=== PATIENT | male | born 1930 | race Caucasian/White ===

== ENCOUNTER 2018-06-29 16:57 | Emergency (ER) | payer MEDICARE, BC ==
[2018-06-29] MEDS ORDERED: Bacitracin Oint 1 GM U/D Packet TOP ONE (18:26)
[2018-06-29] MEDS ORDERED: Lidocaine 1% with EPINEPHrine 1:100,000 50 ML MDV SUBCUT STA (18:26)
--- NOTE | 2018-06-29 19:34 | EDM.PDOC ---
ED HPI GENERAL MEDICAL PROBLEM - General Chief Complaint: Laceration Stated Complaint: LEFT HAND, FINGER, AND ARM INJURY Time Seen by Provider: 06/29/18 18:41 Source of Information: Reports: Patient, RN Notes Reviewed History Limitations: Reports: No Limitations - History of Present Illness INITIAL COMMENTS - FREE TEXT/NARRATIVE: 88-year-old gentleman presents emergency department today following a misstep on a ladder, he injured her injuring his left hand with a significant laceration of the forearm and a small laceration of digit #3 no functional complaints at the elbow or wrist tetanus was last 2016 denies any loss of consciousness Left Hand Pain Score (Numeric/FACES): 5 - Related Data Allergies Allergy/AdvReac Type Severity Reaction Status Date / Time No Known Allergies Allergy Verified 06/29/18 17:08 Home Meds: Home Meds Carvedilol 12.5 mg PO BID 09/25/14 [History] Cholecalciferol (Vitamin D3) [Vitamin D] 400 units PO DAILY 09/25/14 [History] Losartan [Cozaar] 50 mg PO DAILY 09/25/14 [History] Simvastatin 80 mg PO DAILY 09/25/14 [History] Warfarin Sliding Scale [Coumadin Sliding Scale] 2 mg PO ASDIRECTED 09/25/14 [ History] Acetaminophen [Tylenol Extra Strength] 1 tab PO ASDIRECTED 02/17/17 [History] Cyanocobalamin (Vitamin B-12) [Vitamin B-12] 100 mcg PO DAILY 02/17/17 [History] Gabapentin [Neurontin] 1 cap PO TID 02/17/17 [History] Warfarin [Coumadin] 1.5 tab PO ASDIRECTED 02/17/17 [History] Past Medical History HEENT History: Reports: Impaired Vision Cardiovascular History: Reports: Heart Murmur, Hypertension Musculoskeletal History: Reports: Other (See Below) Other Musculoskeletal History: finger amputation Neurological History: Reports: Neuropathy, Peripheral - Past Surgical History Cardiovascular Surgical History: Reports: Valve Replacement Social & Family History - Tobacco Use Smoking Status *Q: Never Smoker - Caffeine Use Caffeine Use: Reports: Soda - Recreational Drug Use Recreational Drug Use: No ED ROS GENERAL - Review of Systems Review Of Systems: See Below Musculoskeletal: Reports: No Symptoms Skin: Reports: Wound ED EXAM, SKIN/RASH Exam: See Below Text/Narrative:: examination of the left arm he is missing digits 12 and 3 from prior injuries there is a 1 cm laceration over the PIP joint superficial palmar aspect there is a 9 cm laceration in the forearm it is completely through the dermis with partial laceration of the muscle, just distal to that is a 3 cm laceration partially through the dermis Exam Limited By: No Limitations General Appearance: Alert, WD/WN, No Apparent Distress Respiratory/Chest: No Respiratory Distress ED SKIN PROCEDURES - Laceration/Wound Repair Left Digit - 4th (Ring) Lac/Wound length In cm: 1 Appearance: Subcutaneous Distal NVT: Neuro & Vascular Intact, No Tendon Injury Anesthetic Type: Digital Local Anesthesia - Lidocaine (Xylocaine): 1% Plain Local Anesthetic Volume: 2cc Skin Prep: Saline Saline Irrigation (cc's): 60 Exploration/Debridement/Repair: Wound Explored, In a Bloodless Field, Explored to Base Closed with: Sutures Suture Size: 4-0 # of Sutures: 2 Suture Type: Interrupted Sterile Dressing Applied: Nurse Tetanus Status Addressed: Yes Complications: No Left Arm Lac/Wound length In cm: 3 Appearance: Subcutaneous Distal NVT: Neuro & Vascular Intact, No Tendon Injury Anesthetic Type: Local Local Anesthesia - Lidocaine (Xylocaine): 1% with EPI Local Anesthetic Volume: 2cc Skin Prep: Saline Saline Irrigation (cc's): 60 Exploration/Debridement/Repair: Wound Explored, In a Bloodless Field, Explored to Base Closed with: Sutures Suture Size: 3-0 # of Sutures: 4 Suture Type: Nylon, Interrupted Sterile Dressing Applied: Nurse Tetanus Status Addressed: Yes Complications: No Left Anterior Arm Lac/Wound length In cm: 9 Appearance: Superficial, Subcutaneous, Muscle, Linear, Clean Distal NVT: Neuro & Vascular Intact, No Tendon Injury Anesthetic Type: Local Local Anesthesia - Lidocaine (Xylocaine): 1% with EPI Local Anesthetic Volume: 4cc Skin Prep: Saline Saline Irrigation (cc's): 180 Exploration/Debridement/Repair: Wound Explored, In a Bloodless Field, Explored to Base Closed with: Sutures Suture Size: 3-0 # of Sutures: 2 Suture Type: Running Suture Size: 3-0 # of Sutures: 6 Repaired with: Vicryl Suture Size: 3-0 # of Sutures: 2 Repaired with: Vicryl Sterile Dressing Applied: Nurse Tetanus Status Addressed: Yes Complications: No Course - Vital Signs Last Recorded V/S: Last Vital Signs Temp 96.9 F 06/29/18 17:20 Pulse 75 06/29/18 17:20 Resp 16 06/29/18 17:20 BP 171/96 H 06/29/18 17:20 Pulse Ox 98 06/29/18 17:20 - Orders/Labs/Meds Orders: Active Orders 24 hr Category Date Time Status Forearm 2V Lt [CR] Stat Exams 06/29/18 17:40 Taken Hand 2V Lt [CR] Stat Exams 06/29/18 17:40 Taken Meds: Medications Discontinued Medications Generic Name Dose Route Start Last Admin Trade Name Magen PRN Reason Stop Dose Admin Bacitracin 3 dose 06/29/18 18:26 06/29/18 18:34 Bacitracin Oint 1 Gm TOP 06/29/18 18:27 3 dose ONETIME ONE Administration Lidocaine HCl 5 ml 06/29/18 18:26 06/29/18 18:34 Xylocaine-Mpf 1% INJECT 06/29/18 18:27 5 ml ONETIME ONE Administration Lidocaine/Epinephrine 20 ml 06/29/18 18:26 06/29/18 18:33 Xylocaine 1% With Epinephrine 1:100,000 SUBCUT 06/29/18 18:27 20 ml NOW STA Administration Departure - Departure Time of Disposition: 19:35 Disposition: Home, Self-Care 01 Condition: Good Clinical Impression: Arm laceration multiple Laceration of arm, left, multiple sites Qualifiers: Encounter type: initial encounter Qualified Code(s): S41.112A - Laceration without foreign body of left upper arm, initial encounter - Discharge Information Referrals: Rinku Boateng [facility] [Primary Care Provider] - Additional Instructions: Suture removal in 10 days, Please followup with your primary care provider in 10 days days for suture removal, please call return to the emergency department with worsening of symptoms. - Assessment/Plan Plan: Assessment Acuity = acute Site and laterality = multiple lacerations to left arm please see procedure note for details Etiology = secondary to fall Manifestations = none Location of injury = Home Lab values = none Plan Suture removal in 10 days, follow wound care instruction sheet, call return to the emergency department worsening of symptoms This note was dictated using [employer] voice recognition software please call with any questions on syntax or grammar.
--- NOTE | 2018-06-30 08:55 | CR ---
Hand 2V Lt CLINICAL HISTORY: Fall, injury FINDINGS: Study is limited to 2 views. 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 This is of remote chronology. There is some deformity at the scaphoid and capitate. There is overlap of the trapezium and second metacarpal. The trapezoid is not definitively identified and may be subluxed. 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 Some of this may be congenital. Previous fracture dislocation is not excluded
--- NOTE | 2018-06-30 09:19 | CR ---
Forearm 2V Lt CLINICAL HISTORY: Pain, trauma FINDINGS: There is soft tissue laceration over the dorsal aspect of the forearm There is no acute fra cture within the forearm. There is olecranon spur. There is also spurring at the radial head IMPRESSION: Soft tissue laceration No fracture Degenerative changes
== END 2018-06-29 20:02 | disposition home or self-care (01) ==
LOC: JP.ED 16:57
DX: S41.112A Laceration without foreign body of left upper arm, initial encounter (principal); I10 Essential (primary) hypertension; Z79.899 Other long term (current) drug therapy; Z79.01 Long term (current) use of anticoagulants; W11.XXXA Fall on and from ladder, initial encounter
CPT/HCPCS: 12005; 73090-26-LT; 73090-LT; 73120-26-LT; 73120-LT; 99284-25

== ENCOUNTER 2019-04-21 14:24 | Emergency (ER) | payer MEDICARE, BC ==
[2019-04-21] MEDS ORDERED: Albuterol/Ipratropium 3.0-0.5 MG/3 ML Neb Soln NEB ONE (14:55)
--- NOTE | 2019-04-21 15:02 | EDM.PDOC ---
ED HPI GENERAL MEDICAL PROBLEM - General Chief Complaint: Respiratory Problem Stated Complaint: BAD COUGH Time Seen by Provider: 04/21/19 14:55 Source of Information: Reports: Patient History Limitations: Reports: No Limitations - History of Present Illness INITIAL COMMENTS - FREE TEXT/NARRATIVE: Earl is an 88 year old male who presents to the ED today with a productive cough , rhinorrhea, sob with activity since Wednesday. Patient denies any chest pain, does report rib soreness secondary to coughing. Denies any lower extremity edema. Patient not currently on antibiotics. Patient does not smoke, no hx of. Patient uncertain if he has had a fever, maybe slight, did take Tylenol prior to arrival here. Patient states he has been staying well hydrated but eating less secondary to lack of appetite. Denies any known sick contacts. Patient denies any hemoptysis. Onset: Gradual Duration: Day(s): (5) - Related Data Allergies Allergy/AdvReac Type Severity Reaction Status Date / Time No Known Allergies Allergy Verified 04/21/19 14:34 Home Meds: Home Meds Carvedilol 12.5 mg PO BID 09/25/14 [History] Cholecalciferol (Vitamin D3) [Vitamin D] 400 units PO DAILY 09/25/14 [History] Losartan [Cozaar] 50 mg PO DAILY 09/25/14 [History] Simvastatin 80 mg PO DAILY 09/25/14 [History] Acetaminophen [Tylenol Extra Strength] 1 tab PO ASDIRECTED 02/17/17 [History] Cyanocobalamin (Vitamin B-12) [Vitamin B-12] 100 mcg PO DAILY 02/17/17 [History] Gabapentin [Neurontin] 1 cap PO BID 02/17/17 [History] Warfarin [Coumadin] 1 tab PO DAILY 02/17/17 [History] Past Medical History HEENT History: Reports: Impaired Vision Cardiovascular History: Reports: Heart Murmur, High Cholesterol, Hypertension Musculoskeletal History: Reports: Other (See Below) 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 ED EXAM, GENERAL - Physical Exam Exam: See Below Exam Limited By: No Limitations General Appearance: Alert, WD/WN, No Apparent Distress Eye Exam: Bilateral Eye: EOMI, PERRL Ears: Normal External Exam, Normal Canal, Normal TMs Nose: Normal Inspection Throat/Mouth: Normal Oropharynx Head: Atraumatic. No: Facial Tenderness, Sinus Tenderness Neck: Normal Inspection, Supple, Non-Tender Respiratory/Chest: Rhonchi (bilateral lower lobes), Wheezing. No: Respiratory Distress Cardiovascular: Regular Rate, Rhythm, Other (Hypertensive) GI/Abdominal: Normal Bowel Sounds, Soft, Non-Tender Back Exam: Normal Inspection Extremities: Normal Inspection, No Pedal Edema Neurological: Alert, Oriented, CN II-XII Intact Psychiatric: Normal Affect, Normal Mood Skin Exam: Warm, Dry, Intact Lymphatic: No Adenopathy Course - Vital Signs Last Recorded V/S: Last Vital Signs Temp 35.5 C 04/21/19 14:43 Pulse 75 04/21/19 14:49 Resp 16 04/21/19 14:49 BP 188/138 H 04/21/19 14:49 Pulse Ox 94 L 04/21/19 14:49 Earl is a very pleasant 88 year old male who presents to the ED today by himself with a 5 day hx of URI symptoms including a productive cough and possible subjective fever. Patient arrives here hemodynamically stable and afebrile, he is hypertensive, takes his medications in the evening, wheezing with bibasilar rhonchi but no increased work of breathing or hypoxia. No complaints or exam findings that are concerning for cardiac etiology. No signs of sepsis. Patient given DuoNeb for wheezing with improvement in his symptoms. CXR obtained with no obvious infiltrate, patient remains with RLL rhonchi, feeling much better after neb, I am going to go ahead and cover patient for CAP with Zithromax and discharge home with inhaler for sob/cough/wheezing. Encouraged hydration, follow up with PCP as needed, reasons to return to the ED discussed, patient agreeable to plan of care and discharged in stable condition. With regard to Hypertension, he is asymptomatic at this time, this can continue to be monitored and follow up as needed. - Orders/Labs/Meds Orders: Active Orders 24 hr Category Date Time Status RT Aerosol Therapy [RC] ASDIRECTED Care 04/21/19 14:55 Active Meds: Medications Discontinued Medications Generic Name Dose Route Start Last Admin Trade Name Magen PRN Reason Stop Dose Admin Albuterol/Ipratropium 3 ml 04/21/19 14:55 04/21/19 15:14 Duoneb 3.0-0.5 Mg/3 Ml NEB 04/21/19 14:56 3 ml ONETIME ONE Administration Departure - Departure Time of Disposition: 16:30 Disposition: Home, Self-Care 01 Condition: Good Clinical Impression: Pneumonia Qualifiers: Pneumonia type: due to unspecified organism Laterality: right Lung location: lower lobe of lung Qualified Code(s): J18.1 - Lobar pneumonia, unspecified organism - Discharge Information Instructions: Community-Acquired Pneumonia, Adult, [id number], How to Use a Metered Dose Inhaler Referrals: PCP,None [Primary Care Provider] - Forms: ED Department Discharge Additional Instructions: Start antibiotics today. Use inhaler as prescribed. Stay well hydrated. Tylenol as needed. Monitor your blood pressure and follow up with your primary care provider as needed if it remains elevated. Return here with any worsening symptoms or concerns. - My Orders Last 24 Hours: My Active Orders 04/21/19 14:55 RT Aerosol Therapy [RC] ASDIRECTED - Assessment/Plan Last 24 Hours: My Active Orders 04/21/19 14:55 RT Aerosol Therapy [RC] ASDIRECTED
--- NOTE | 2019-04-21 15:42 | CRLCR ---
INDICATION: Cough, fever TECHNIQUE: Chest radiograph 2 views COMPARISON: None FINDINGS: Moderate degradation of image quality noted due to body habitus. 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 Moderate cardiomegaly is noted. Lung: Mild bibasilar subsegmental atelectasis is seen. No sign of pleural effusion seen. No pneumothorax is identified. IMPRESSION: 1. Moderate cardiomegaly is noted. Dictated by Sachin Cheek MD @ 04/21/2019 3:41:23 PM Dictated by: Sachin Cheek MD @ 04/21/2019 15:41:35 (Electronically Signed)
== END 2019-04-21 16:12 | disposition home or self-care (01) ==
LOC: JP.ED 14:24
DX: J18.1 Lobar pneumonia, unspecified organism (principal); E78.00 Pure hypercholesterolemia, unspecified; I10 Essential (primary) hypertension; Z79.899 Other long term (current) drug therapy; Z95.5 Presence of coronary angioplasty implant and graft
CPT/HCPCS: 71046; 94640; 99283-25; 99284; J7620-GY

== ENCOUNTER 2020-02-18 12:57 | Emergency (ER) | payer MEDICARE, BC ==
--- NOTE | 2020-02-18 13:56 | EDM.PDOC ---
ED HPI GENERAL MEDICAL PROBLEM - General Chief Complaint: Respiratory Problem Stated Complaint: SOB Time Seen by Provider: 02/18/20 13:40 Source of Information: Reports: Patient History Limitations: Reports: No Limitations - History of Present Illness INITIAL COMMENTS - FREE TEXT/NARRATIVE: Alert very pleasant 89-year-old gentleman who appears younger than chronological age. Patient presents to the [place] ER complaining of shortness of breath and difficulty catching his breath more so at night. Patient notices when he lays in bed at night he has difficulty following asleep during feeling short of breath. Patient has woken up 1 or 2 times every night unable to catch his breath. He gets up and goes to the kitchen table noting breathing seems to get better after seated for a few minutes. Patient again tries to lay down to sleep and again has difficulty sleeping due to his breathing. Patient noticed last evening he fell asleep in his recliner and slept fairly well. Patient has a significant history of a heart valve replacement a few years ago with echo is completed. Patient was given a water pill if his weight changes more than 5 pounds. Patient however has not been weighing himself to notice any changes. Patient believes he is actually heavier than he has been in the past. Patient has had a slight cough, felt a little warm and feverish this morning. Patient states his cough is nonproductive and fairly rare. Patient denies any diarrhea, blood in his stool or dark stools. Patient denies any rashes or sores to his skin. Patient denies any urinary concerns. Earl denies any chest pain or chest pressure. Earl hasn't increased shortness of breath with slight activity unable to take his usual daily walks. Bilateral Leg Pain Score (Numeric/FACES): 3 - Related Data Allergies Allergy/AdvReac Type Severity Reaction Status Date / Time No Known Allergies Allergy Verified 02/18/20 13:11 Home Meds: Home Meds Cholecalciferol (Vitamin D3) [Vitamin D] 400 units PO DAILY 09/25/14 [History] Losartan [Cozaar] 50 mg PO DAILY 09/25/14 [History] Simvastatin 80 mg PO DAILY 09/25/14 [History] carvediloL [Carvedilol] 12.5 mg PO BID 09/25/14 [History] Cyanocobalamin (Vitamin B-12) [Vitamin B-12] 100 mcg PO DAILY 02/17/17 [History] Gabapentin [Neurontin] 1 cap PO BID 02/17/17 [History] Warfarin [Coumadin] 1 tab PO DAILY 02/17/17 [History] Furosemide [Lasix] 20 mg PO DAILY 10 Days #10 tab 02/18/20 [Rx] Past Medical History HEENT History: Reports: Impaired Vision Cardiovascular History: Reports: Heart Murmur, High Cholesterol, Hypertension Other Cardiovascular History: Aortic valve replacement. Mitral valve insufficiency Genitourinary History: Reports: Renal Calculus Musculoskeletal History: Reports: Other (See Below) Other Musculoskeletal History: finger amputation Neurological History: Reports: Neuropathy, Peripheral - Infectious Disease History Infectious Disease History: Reports: Chicken Pox, Measles, Mumps - Past Surgical History Cardiovascular Surgical History: Reports: Valve Replacement Social & Family History - Tobacco Use Smoking Status *Q: Never Smoker Second Hand Smoke Exposure: No - Caffeine Use Caffeine Use: Reports: Soda - Alcohol Use Days Per Week of Alcohol Use: 2 Number of Drinks Per Day: 2 Total Drinks Per Week: 4 - Recreational Drug Use Recreational Drug Use: No ED ROS GENERAL - Review of Systems Review Of Systems: Comprehensive ROS is negative, except as noted in HPI. Respiratory: Reports: Shortness of Breath, Other (worsening SOB when lying down) . Denies: Wheezing, Pleuritic Chest Pain Cardiovascular: Reports: Other (denies weight changes but has not check his weight but feels like he has gained weight). Denies: Chest Pain, Edema ED EXAM, GENERAL - Physical Exam Exam: See Below Exam Limited By: No Limitations General Appearance: Alert, WD/WN, No Apparent Distress Eye Exam: Bilateral Eye: EOMI, Normal Inspection Ears: Normal External Exam, Hearing Grossly Normal Nose: Normal Inspection, Normal Mucosa, No Blood Throat/Mouth: Normal Inspection, Normal Lips, Normal Voice, No Airway Compromise Head: Atraumatic Neck: Normal Inspection, Supple, Non-Tender Respiratory/Chest: No Respiratory Distress, Decreased Breath Sounds, Crackles Cardiovascular: Systolic Murmur (with mechanical value click ), Irregularly Irregular GI/Abdominal: Normal Bowel Sounds, Soft, Non-Tender (Male) Exam: Deferred Rectal (Males) Exam: Deferred Back Exam: Normal Inspection, Full Range of Motion Extremities: Pedal Edema (right leg worsen than left) Neurological: Alert, Oriented, CN II-XII Intact, Normal Cognition, Normal Gait, Normal Reflexes, No Motor/Sensory Deficits Psychiatric: Normal Affect, Normal Mood Skin Exam: Warm, Dry, Intact, Normal Color, No Rash EKG INTERPRETATION EKG Date: 02/18/20 Time: 13:57 Rhythm: A-Fib Rate (Beats/Min): 86 [place]: LAD-Left [place] Deviation (LVH) P-Wave: Variable QRS: Other ([place]em[place]) ST-T: Normal QT: Prolonged (517) EKG Interpretation Comments: No previous EKG available in [facility], [place] with stress test noted flat T waves without mention of ST segment changes noted. Previous medical record reviewed noting Chronic CHF and Chronic a-fib which patient did not recall during examination. Course - Vital Signs Last Recorded V/S: Last Vital Signs Temp 36.6 C 02/18/20 13:23 Pulse 78 02/18/20 16:15 Resp 16 02/18/20 16:15 BP 188/91 H 02/18/20 16:15 Pulse Ox 97 02/18/20 16:15 - Orders/Labs/Meds Orders: Active Orders 24 hr Category Date Time Status Cardiac Monitoring [RC] .As Directed Care 02/18/20 13:49 Active EKG Documentation Completion [RC] ASDIRECTED Care 02/18/20 13:48 Active Peripheral IV Care [RC] . DIRECTED Care 02/18/20 15:12 Active Weight [Height and Weight] [RC] UPON Care 02/18/20 15:14 Active CXR [Chest 2V] [CR] Stat Exams 02/18/20 13:48 Taken Sodium Chloride 0.9% [Saline Flush] Med 02/18/20 15:12 Active 10 ml FLUSH ASDIRECTED PRN Peripheral IV Insertion Adult [OM.PC] Urgent Oth 02/18/20 15:12 Ordered EKG 12 Lead [EK] Urgent Ther 02/18/20 13:48 Ordered Medication Orders Sodium Chloride (Saline Flush) 10 ml FLUSH ASDIRECTED PRN PRN Reason: Keep Vein Open Last Admin: 02/18/20 15:31 Dose: 10 ml Labs: Laboratory Tests 02/18/20 02/18/20 02/18/20 Range/Units 14:22 14:22 14:22 WBC (4.5-11.0) K/uL RBC (4.30-5.90) M/uL Hgb (12.0-15.0) g/dL Hct (40.0-54.0) % MCV (80-98) fL MCH (27-31) pg MCHC (32-36) % Plt Count (150-400) K/uL Neut % (Auto) (36-66) % Lymph % (Auto) (24-44) % [place] % (Auto) (2-6) % Eos % (Auto) (2-4) % Baso % (Auto) (0-1) % PT 28.7 H (9.5-12.0) sec INR 2.82 H (0.80-1.20) Sodium 140 (140-148) mmol/L Potassium 4.2 (3.6-5.2) mmol/L Chloride 105 (100-108) mmol/L Carbon Dioxide 26 (21-32) mmol/L Anion Gap 8.9 (5.0-14.0) mmol/L BUN 25 H (7-18) mg/dL Creatinine 1.0 (0.8-1.3) mg/dL Est Cr Clr Drug Dosing 51.06 mL/min Estimated GFR (MDRD) > 60 (>60) Glucose 101 (74-106) mg/dL Calcium 8.7 (8.5-10.1) mg/dL Total Bilirubin 2.7 H (0.2-1.0) mg/dL AST 20 (15-37) U/L ALT 24 (12-78) U/L Alkaline Phosphatase 72 (46-116) U/L C-Reactive Protein 0.09 (0.0-0.3) mg/dL NT-Pro-B Natriuret Pep 3029 H (5-450) pg/mL Total Protein 7.2 (6.4-8.2) g/dL Albumin 3.6 (3.4-5.0) g/dL Globulin 3.6 H (2.3-3.5) g/dL Albumin/Globulin Ratio 1.0 L (1.2-2.2) / Range/Units 14:22 WBC 5.0 (4.5-11.0) K/uL RBC 4.22 L (4.30-5.90) M/uL Hgb 13.6 (12.0-15.0) g/dL Hct 42.2 (40.0-54.0) % MCV 100 H (80-98) fL MCH 32 H (27-31) pg MCHC 32 (32-36) % Plt Count 78 L (150-400) K/uL Neut % (Auto) 71 H (36-66) % Lymph % (Auto) 14 L (24-44) % [place] % (Auto) 14 H (2-6) % Eos % (Auto) 1 L (2-4) % Baso % (Auto) 0 (0-1) % PT (9.5-12.0) sec INR (0.80-1.20) Sodium (140-148) mmol/L Potassium (3.6-5.2) mmol/L Chloride (100-108) mmol/L Carbon Dioxide (21-32) mmol/L Anion Gap (5.0-14.0) mmol/L BUN (7-18) mg/dL Creatinine (0.8-1.3) mg/dL Est Cr Clr Drug Dosing mL/min Estimated GFR (MDRD) (>60) Glucose (74-106) mg/dL Calcium (8.5-10.1) mg/dL Total Bilirubin (0.2-1.0) mg/dL AST (15-37) U/L ALT (12-78) U/L Alkaline Phosphatase (46-116) U/L C-Reactive Protein (0.0-0.3) mg/dL NT-Pro-B Natriuret Pep (5-450) pg/mL Total Protein (6.4-8.2) g/dL Albumin (3.4-5.0) g/dL Globulin (2.3-3.5) g/dL Albumin/Globulin Ratio (1.2-2.2) Meds: Medications Generic Name Dose Route Start Last Admin Trade Name Freq PRN Reason Stop Dose Admin Sodium Chloride 10 ml 02/18/20 15:12 02/18/20 15:31 Saline Flush FLUSH 10 ml ASDIRECTED PRN Administration Keep Vein Open Discontinued Medications Generic Name Dose Route Start Last Admin Trade Name Freq PRN Reason Stop Dose Admin Furosemide 40 mg 02/18/20 15:12 02/18/20 15:31 Lasix IVPUSH 02/18/20 15:13 40 mg ONETIME ONE Administration - Re-Assessments/Exams Free Text/Narrative Re-Assessment/Exam: Visit Evaluation/Treatment Course: Triage and Nursing notes reviewed. EPIC was reviewed for patient's past visits, past medical history, surgical history, current medications and allergies. Patient roomed and evaluated shortly after arriving. Pain Management offered if safe ride available and per patient's request. Patient's past medical history was reviewed. I visited the patient in the room where history was collected and physical examination was performed. I discussed further plan of care which included the above workup. IV was inserted and blood was drawn. I reviewed the physical examination findings with the patient and given the above interventions. MDM: I reevaluated the patient and discussed the results of the above workup. I discussed follow up instructions and signs and symptoms that should prompt return to the emergency department. Patient expressed understanding and the patient was discharged. Encouraged close follow up with PCP this week with daily weights if possible. Return to an ER if symptoms worsen or new symptoms develop. Patient/Family/ Friend voiced understanding and agreed to treatment plan. 02/18/20 15:50 Departure - Departure Time of Disposition: 16:30 Disposition: Home, Self-Care 01 Clinical Impression: Elevated blood pressure reading CHF exacerbation Qualifiers: Heart failure type: combined systolic and diastolic Qualified Code(s): I50.43 - Acute on chronic combined systolic (congestive) and diastolic (congestive) heart failure Clinical Impression: (Ruled Out): Acute right-sided CHF (congestive heart failure) - Discharge Information Prescriptions: Furosemide [Lasix] 20 mg PO DAILY 10 Days #10 tab Instructions: Heart Failure Action Plan, Heart Failure, Living With Heart Failure, Heart Failure Exacerbation, Hypertension, Adult, [id number] Referrals: PCP,None [Ordering Only Provider] - Forms: ED Department Discharge Additional Instructions: 1. Lasix 20 mg daily every am x 10 days. 2. Follow-up with PCP this week for repeat blood tests and consider repeat Cardiac Echo. 3. You will need to urinate more often due to medications. 4. Check your blood pressure and pulse 1-2 times per day, take values to clinic appointment this week for recheck. 5. Check your weight 1-2 times per day to see if decreased blood pressure noted. 6. You should noticed improved ability to lay flat at night to sleep and improving shortness of breath with activity. 7. You may notice slight lightheadedness if you get up from lying or seated position too fast while your blood adjust to the new medication. 8. If your symptoms get worsen or new concerns return to ER. Sepsis Event Note - Evaluation Sepsis Screening Result: No Definite Risk - Focused Exam Vital Signs: Vital Signs Temp Pulse Resp BP Pulse Ox 02/18/20 16:15 78 16 188/91 H 97 02/18/20 13:23 36.6 C 59 L 16 182/105 H 97 02/18/20 13:09 36.6 C 59 L 16 182/105 H 97 Date Exam was Performed: 02/18/20 Time Exam was Performed: 16:29 - Problem List & Annotations (1) CHF exacerbation SNOMED Code(s): 153565355, [id number] Code(s): I50.9 - HEART FAILURE, UNSPECIFIED Status: Acute Current Visit: Yes Qualifiers: Heart failure type: combined systolic and diastolic Qualified Code(s): I50.43 - Acute on chronic combined systolic (congestive) and diastolic ( congestive) heart failure - My Orders Last 24 Hours: My Active Orders 02/18/20 13:48 EKG Documentation Completion [RC] ASDIRECTED CXR [Chest 2V] [CR] Stat EKG 12 Lead [EK] Urgent 02/18/20 13:49 Cardiac Monitoring [RC] .As Directed 02/18/20 15:12 Peripheral IV Care [RC] . DIRECTED Sodium Chloride 0.9% [Saline Flush] 10 ml FLUSH ASDIRECTED PRN Peripheral IV Insertion Adult [OM.PC] Urgent 02/18/20 15:14 Weight [Height and Weight] [RC] UPON - Assessment/Plan Last 24 Hours: My Active Orders 02/18/20 13:48 EKG Documentation Completion [RC] ASDIRECTED CXR [Chest 2V] [CR] Stat EKG 12 Lead [EK] Urgent 02/18/20 13:49 Cardiac Monitoring [RC] .As Directed 02/18/20 15:12 Peripheral IV Care [RC] . DIRECTED Sodium Chloride 0.9% [Saline Flush] 10 ml FLUSH ASDIRECTED PRN Peripheral IV Insertion Adult [OM.PC] Urgent 02/18/20 15:14 Weight [Height and Weight] [RC] UPON
[2020-02-18] MEDS ORDERED: Sodium Chloride 0.9% 10 ML Syringe FLUSH PRN (15:12)
[2020-02-18] MEDS ORDERED: Furosemide 40 MG/4 ML VIAL IVPUSH ONE (15:12)
--- NOTE | 2020-02-20 09:47 | CR ---
CHEST: 2 view CLINICAL HISTORY:SOB COMPARISON:March 2019 FINDINGS: The heart is large. Patient has had previous sternotomy. Pulmonary vascularity is mildly cephalized. No infiltrates are seen. There are small bibasal effusions. There are atherosclerotic changes in the aorta. Impression: Cardiomegaly Mild vascular cephalization and small bibasal effusions suggest some current or recent cardiac decompensation.
== END 2020-02-18 16:32 | disposition home or self-care (01) ==
LOC: JP.ED 12:57
DX: I11.0 Hypertensive heart disease with heart failure (principal); I50.43 Acute on chronic combined systolic (congestive) and diastolic (congestive) heart failure; Z79.899 Other long term (current) drug therapy; Z79.01 Long term (current) use of anticoagulants
CPT/HCPCS: 36415; 71046; 80053; 83880; 85025; 85610; 86140; 93005; 96374; 99285; J1940